=== PATIENT | female | born 1980 | race American Indian/Alaskan Native ===

== ENCOUNTER 2018-12-31 11:58 | Emergency (ER) | payer OTHER ==
--- NOTE | 2018-12-31 12:22 | EDM.PDOC ---
ED HPI GENERAL MEDICAL PROBLEM - General Chief Complaint: Fever Stated Complaint: AMBULANCE Time Seen by Provider: 12/31/18 12:22 Source of Information: Reports: Patient, EMS, Family, Old Records, RN, RN Notes Reviewed History Limitations: Reports: No Limitations - History of Present Illness INITIAL COMMENTS - FREE TEXT/NARRATIVE: Pt sent from [facility] today by ambulance with c/o fever, jaundice, and new murmur. Pt states she hasn't felt well for several days. Pt's sister reports pt has been intermittently confused recently. Records from clinic indicate pt was admitted to [facility] on 12/19/18 for evaluation of a traumatic hematoma to the right anterior lower leg. While there the hematoma was lanced and drained, and the pt was seen by GI with upper/lower endoscopy showing mild portal HYN, gastropathy, mild gastritis, no varices, and the presence of hemorrhoids. Pt also experienced alcohol withdrawals during the admission. She was d/c'd home on 12/23/18. Pt has continued to drink alcohol. She states the she last drank 40oz. to 60oz. of beer yesterday. Pt denies cough, chest pain, abdominal pain, nausea, vomiting, diarrhea, black/ tarry or melanotic stool. Onset: Gradual Duration: Day(s): (3-4) Location: Reports: Generalized Severity: Severe Improves with: Reports: None Worsens with: Reports: None Associated Symptoms: Reports: No Other Symptoms - Related Data Allergies Allergy/AdvReac Type Severity Reaction Status Date / Time No Known Allergies Allergy Verified 12/31/18 12:59 Home Meds: Home Meds . [No Known Home Meds] 12/31/18 [History] Past Medical History Cardiovascular History: Reports: Heart Murmur Gastrointestinal History: Reports: Cirrhosis, Gastritis, Hemorrhoids, Jaundice, Other (See Below) (Alcoholic liver disease) Psychiatric History: Reports: Addiction (Alcohol) Hematologic History: Reports: Anemia Social & Family History - Family History Family Medical History: Noncontributory - Tobacco Use Smoking Status *Q: Current Some Day Smoker Tobacco Use Within Last Twelve Months: Cigarettes - Alcohol Use Alcohol Use History: Yes Days Per Week of Alcohol Use: 7 (40 to 60oz beer/day) Alcohol Use Frequency: Daily - Recreational Drug Use Recreational Drug Use: No - Living Situation & Occupation Living situation: Reports: with Significant Other Occupation: Unemployed ED ROS GENERAL - Review of Systems Review Of Systems: ROS reveals no pertinent complaints other than HPI. ED EXAM, GENERAL - Physical Exam Exam: See Below Exam Limited By: No Limitations General Appearance: Alert, No Apparent Distress, Other (Chronically ill appearing) Eye Exam: Bilateral Eye: EOMI, PERRL, Other (Scleral icterus) Ears: Normal External Exam, Hearing Grossly Normal Nose: Normal Inspection, Normal Mucosa, No Blood Throat/Mouth: Normal Lips, Normal Oropharynx, Normal Voice, No Airway Compromise , Other (Dry oral membranes. Gum erythema/irritation) Head: Atraumatic, Normocephalic Neck: Normal Inspection, Supple, Non-Tender, Full Range of Motion, Other (No nuchal rigidity). No: Lymphadenopathy (L), Lymphadenopathy (R) Respiratory/Chest: No Respiratory Distress, Lungs Clear, Normal Breath Sounds, No Accessory Muscle Use, Chest Non-Tender Cardiovascular: Normal Peripheral Pulses, Regular Rate, Rhythm, No Gallop, No JVD, Systolic Murmur (2/6) GI/Abdominal: Normal Bowel Sounds, Soft, Non-Tender, No Distention, No Abnormal Bruit, Hepatomegaly. No: Guarding, Rigid, Rebound (Female) Exam: Deferred Rectal (Female) Exam: Deferred Back Exam: Normal Inspection, Full Range of Motion. No: CVA Tenderness (L), CVA Tenderness (R) Extremities: Normal Range of Motion, Normal Capillary Refill, Pedal Edema (+1 edema to knees, R>L), Other (resolving hematoma with healing non-infected central wound, no drainage, no erythema). No: Joint Swelling, Diana's Sign, Increased Warmth, Redness Neurological: Alert, Oriented, CN II-XII Intact, Normal Cognition, Normal Gait, No Motor/Sensory Deficits, Other (Fine tremor of B/L upper extremities) Psychiatric: Normal Affect, Normal Mood Skin Exam: Warm, Dry, Intact, No Rash, Other (multiple bruises to various body areas in various stages of healing) EKG INTERPRETATION EKG Date: 12/31/18 Time: 12:17 Rhythm: Other (SR) Rate (Beats/Min): 97 [place]: Normal P-Wave: Present QRS: Normal ST-T: Normal QT: Prolonged (borderline) Comparison: NA - No Prior EKG Course - Vital Signs Last Recorded V/S: Last Vital Signs Temp 39.4 C H 12/31/18 14:25 Pulse 106 H 12/31/18 14:25 Resp 20 12/31/18 14:25 BP 95/69 12/31/18 14:25 Pulse Ox 100 12/31/18 14:25 - Orders/Labs/Meds Orders: Active Orders 24 hr Category Date Time Status EKG Documentation Completion [RC] STAT Care 12/31/18 12:24 Active Peripheral IV Care [RC] . DIRECTED Care 12/31/18 12:28 Active Chest 1V Frontal [CR] Stat Exams 12/31/18 14:47 Ordered CULTURE BLOOD [] Stat Lab 12/31/18 13:11 Received CULTURE BLOOD [] Stat Lab 12/31/18 13:50 Received CULTURE STREP A CONFIRMATION [] Stat Lab 12/31/18 13:06 Results CULTURE WOUND + SMEAR [] Stat Lab 12/31/18 14:15 Received STREP SCRN A RAPID W CULT CONF [] Stat Lab 12/31/18 13:06 Results Sodium Chloride 0.9% [Normal Saline] 1,000 ml Med 12/31/18 14:14 Active IV .BOLUS Vancomycin 1 gm Med 12/31/18 14:13 Active Sodium Chloride 0.9% [Normal Saline] 250 ml IV ONETIME Blood Culture x2 Reflex Set [OM.PC] Stat Oth 12/31/18 12:28 Ordered Medication Orders Sodium Chloride (Normal Saline) 1,000 mls @ 999 mls/hr IV .BOLUS ONE Stop: 12/31/18 15:14 Last Admin: 12/31/18 14:36 Dose: 999 mls/hr Vancomycin HCl 1 gm/ Sodium (Chloride) 250 mls @ 167 mls/hr IV ONETIME ONE Stop: 12/31/18 15:42 Last Admin: 12/31/18 14:39 Dose: 167 mls/hr Labs: Laboratory Tests 12/31/18 12/31/18 12/31/18 Range/Units 12:30 13:11 13:11 WBC 19.4 H (5.0-10.0) 10^3/uL RBC 2.72 L (4.2-5.4) 10^6/uL Hgb 7.3 L (12.0-16.0) g/dL Hct 22.9 L (37.0-47.0) % MCV 84.2 (80-100) fL MCH 26.8 L (27.0-34.0) pg MCHC 31.9 L (33.0-35.0) g/dL Plt Count 235 (150-450) 10^3/uL APTT (22.0-34.0) SEC Sodium 128 L (135-145) mmol/L Potassium 3.3 L (3.6-5.0) mmol/L Chloride 99 L (101-111) mmol/L Carbon Dioxide 18.0 L (21.0-31.0) mmol/L Anion Gap 14.3 BUN 7 (7-18) mg/dL Creatinine 0.4 L (0.6-1.3) mg/dL Est Cr Clr Drug Dosing 157.75 mL/min Estimated GFR (MDRD) > 60 BUN/Creatinine Ratio 17.50 Glucose 96 (74-105) mg/dL Lactic Acid (0.5-2.2) mmol/L Calcium 7.0 L (8.4-10.2) mg/dl Total Bilirubin 3.8 H (0.2-1.0) mg/dL AST 69 H (10-42) IU/L ALT 21 (10-60) IU/L Alkaline Phosphatase 228 H (42-121) IU/L Ammonia (11-35) umol/L Troponin I 0.02 (0.00-0.02) ng/ml Total Protein 7.1 (6.7-8.2) g/dl Albumin 1.6 L (3.2-5.5) g/dl Globulin 5.5 Albumin/Globulin Ratio 0.29 Amylase 28 (28-100) U/L Lipase 27 (22-51) U/L Urine Color Brittney (YELLOW) Urine Appearance Clear (CLEAR) Urine pH 6.0 (5.0-9.0) Ur Specific [place] 1.020 (1.005-1.030) Urine Protein Trace H (NEGATIVE) Urine Glucose (UA) Negative (NEGATIVE) Urine Ketones Trace H (NEGATIVE) Urine Occult Blood Negative (NEGATIVE) Urine Nitrite Negative (NEGATIVE) Urine Bilirubin Small H (NEGATIVE) Urine Urobilinogen 4.0 H (0.2-1.0) mg/dL Ur Leukocyte Esterase Negative (NEGATIVE) Urine RBC 0-5 /HPF Urine WBC 0-5 (0-5/HPF) /HPF Ur Epithelial Cells Moderate H /HPF Urine Bacteria Few (0-FEW/HPF) /HPF Urine Mucus Moderate H /LPF Ethyl Alcohol < 5 mg/dL 12/31/18 12/31/18 12/31/18 Range/Units 13:11 13:11 13:11 WBC (5.0-10.0) 10^3/uL RBC (4.2-5.4) 10^6/uL Hgb (12.0-16.0) g/dL Hct (37.0-47.0) % MCV (80-100) fL MCH (27.0-34.0) pg MCHC (33.0-35.0) g/dL Plt Count (150-450) 10^3/uL APTT 37.8 H (22.0-34.0) SEC Sodium (135-145) mmol/L Potassium (3.6-5.0) mmol/L Chloride (101-111) mmol/L Carbon Dioxide (21.0-31.0) mmol/L Anion Gap BUN (7-18) mg/dL Creatinine (0.6-1.3) mg/dL Est Cr Clr Drug Dosing mL/min Estimated GFR (MDRD) BUN/Creatinine Ratio Glucose (74-105) mg/dL Lactic Acid 3.0 H (0.5-2.2) mmol/L Calcium (8.4-10.2) mg/dl Total Bilirubin (0.2-1.0) mg/dL AST (10-42) IU/L ALT (10-60) IU/L Alkaline Phosphatase (42-121) IU/L Ammonia 58 H (11-35) umol/L Troponin I (0.00-0.02) ng/ml Total Protein (6.7-8.2) g/dl Albumin (3.2-5.5) g/dl Globulin Albumin/Globulin Ratio Amylase (28-100) U/L Lipase (22-51) U/L Urine Color (YELLOW) Urine Appearance (CLEAR) Urine pH (5.0-9.0) Ur Specific [place] (1.005-1.030) Urine Protein (NEGATIVE) Urine Glucose (UA) (NEGATIVE) Urine Ketones (NEGATIVE) Urine Occult Blood (NEGATIVE) Urine Nitrite (NEGATIVE) Urine Bilirubin (NEGATIVE) Urine Urobilinogen (0.2-1.0) mg/dL Ur Leukocyte Esterase (NEGATIVE) Urine RBC /HPF Urine WBC (0-5/HPF) /HPF Ur Epithelial Cells /HPF Urine Bacteria (0-FEW/HPF) /HPF Urine Mucus /LPF Ethyl Alcohol mg/dL Meds: Medications Generic Name Dose Route Start Last Admin Trade Name Freq PRN Reason Stop Dose Admin Sodium Chloride 1,000 mls @ 999 mls/hr 12/31/18 14:14 12/31/18 14:36 Normal Saline IV 12/31/18 15:14 999 mls/hr .BOLUS ONE Administration Vancomycin HCl 1 gm/ Sodium 250 mls @ 167 mls/hr 12/31/18 14:13 12/31/18 14: 39 Chloride IV 12/31/18 15:42 167 mls/hr ONETIME ONE Administration Discontinued Medications Generic Name Dose Route Start Last Admin Trade Name Freq PRN Reason Stop Dose Admin Piperacillin Sod/Tazobactam 100 mls @ 200 mls/hr 12/31/18 14:13 12/31/18 14: 36 Sod 3.375 gm/ Sodium Chloride IV 12/31/18 14:42 200 mls/hr ONETIME ONE Administration - Radiology Interpretation Free Text/Narrative:: XR Rt Lower Extremity: anterior soft tissue swelling, no FB, no fractures per Rad. report. Chest XR: no acute process per Rad. report. Departure - Departure Time of Disposition: 15:01 Disposition: DC/Tfer to [facility] 02 Condition: Critical Clinical Impression: Alcoholic liver disease, Wound infection, Newly recognized heart murmur, Chronic alcohol abuse Sepsis Qualifiers: Sepsis type: sepsis due to unspecified organism Qualified Code(s): A41.9 - Sepsis, unspecified organism - Discharge Information *PRESCRIPTION DRUG MONITORING PROGRAM REVIEWED*: No *COPY OF PRESCRIPTION DRUG MONITORING REPORT IN PATIENT KRISTINA: No Forms: ED Department Discharge, Interfacility Transfer EMTALA - My Orders Last 24 Hours: My Active Orders 12/31/18 12:24 EKG Documentation Completion [RC] STAT 12/31/18 12:28 Peripheral IV Care [RC] . DIRECTED Blood Culture x2 Reflex Set [OM.PC] Stat 12/31/18 13:06 CULTURE STREP A CONFIRMATION [RM] Stat STREP SCRN A RAPID W CULT CONF [RM] Stat 12/31/18 13:11 CULTURE BLOOD [BC] Stat 12/31/18 13:50 CULTURE BLOOD [BC] Stat 12/31/18 14:13 Vancomycin 1 gm Sodium Chloride 0.9% [Normal Saline] 250 ml IV ONETIME 12/31/18 14:14 Sodium Chloride 0.9% [Normal Saline] 1,000 ml IV .BOLUS 12/31/18 14:15 CULTURE WOUND + SMEAR [RM] Stat 12/31/18 14:47 Chest 1V Frontal [CR] Stat - Assessment/Plan Last 24 Hours: My Active Orders 12/31/18 12:24 EKG Documentation Completion [RC] STAT 12/31/18 12:28 Peripheral IV Care [RC] . DIRECTED Blood Culture x2 Reflex Set [OM.PC] Stat 12/31/18 13:06 CULTURE STREP A CONFIRMATION [] Stat STREP SCRN A RAPID W CULT CONF [] Stat 12/31/18 13:11 CULTURE BLOOD [BC] Stat 12/31/18 13:50 CULTURE BLOOD [BC] Stat 12/31/18 14:13 Vancomycin 1 gm Sodium Chloride 0.9% [Normal Saline] 250 ml IV ONETIME 12/31/18 14:14 Sodium Chloride 0.9% [Normal Saline] 1,000 ml IV .BOLUS 12/31/18 14:15 CULTURE WOUND + SMEAR [RM] Stat 12/31/18 14:47 Chest 1V Frontal [CR] Stat
--- NOTE | 2018-12-31 13:03 | CR ---
Clinical history: 38-year-old female with lower extremity swelling. No reported trauma. Interpretation: Prominent pretibial soft tissue swelling without sign of underlying foreign body, inflammatory periostitis, or subcutaneous air. No pathologic skeletal lesion or fracture of the long bones (tibia/fibula). Mild arthritic changes of the knee joint proximally. Ankle joint unremarkable. ,
[2018-12-31 13:47] LABS: ANION GAP 14.3; CHLORIDE,CL 99 mmol/L (101-111); SODIUM,NA 128 mmol/L (135-145)
[2018-12-31] MEDS ORDERED: Piperacillin/Tazobactam 3.375 GM in Sodium Chloride 0.9% 100 ML IV ONE (14:13)
[2018-12-31] MEDS ORDERED: Sodium Chloride 0.9% 1,000 ML IV ONE (14:14)
--- NOTE | 2018-12-31 15:43 | CR ---
Clinical history: 38-year-old female chest pain. Dilatation: Upright AP portable chest film unremarkable. (No comparison films) External phototypesetting equipment monitor leads. Normal cardiac silhouette without cephalization of flow, signs of alveolar edema or dependent pleural fluid accumulation. No lung mass, hilar lymphadenopathy or focal lobar pneumonia. No atelectasis/collapse. Amanda thorax unremarkable. No pneumothorax or free subdiaphragmatic air.. CONCLUSION: No acute cardiopulmonary abnormality.
== END 2018-12-31 15:05 ==
LOC: EDBD → DL.ED 11:58
DX: A41.9 Sepsis, unspecified organism (principal); K70.9 Alcoholic liver disease, unspecified; F10.20 Alcohol dependence, uncomplicated; F17.210 Nicotine dependence, cigarettes, uncomplicated
CPT/HCPCS: 36415; 71045; 73590; 80053; 81001; 82140; 82150; 83605; 83690; 84484; 85027; 85730; 87040; 87070; 87081; 87205; 87430; 87804; 93005; 96365; 96368; 99285; G0480; J2543; J3370; J7030; J7050

== ENCOUNTER 2019-12-08 20:00 | Emergency (ER) | payer MEDICAID ==
--- NOTE | 2019-12-08 20:32 | EDM.PDOC ---
ED HPI GENERAL MEDICAL PROBLEM - General Chief Complaint: Behavioral/Psych Stated Complaint: TOXIC BUILD UP IN BODY, HEARING VOICES PER PT SIS. Time Seen by Provider: 12/08/19 20:15 Source of Information: Reports: Patient, Family (Sister) History Limitations: Reports: No Limitations - History of Present Illness INITIAL COMMENTS - FREE TEXT/NARRATIVE: This 39 yo female patient reports to the ED due to hearing voices over the past 2-3 days. The patient also reports having intermittent left lower quadrant abdominal pain and intermittent chest pain. The patient patient reports the voices she has been hearing have been "from law enforcement saying they were going to kill her and hide her body someplace." The patient reports her abdominal pain is currently present, but has been going on for the past several days. The patient reports she currently does not have any chest pain. The patient reports she was recently hospitalized in [facility]) with similar symptoms. The patient reports he has not had any alcohol in the past 2 days and has not done any drugs for the past 2 weeks. 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 The patient's sister reports she had a missing persons on the patient in the end of November. The patient was located at [facility] on 11/27/19 with similar symptoms. The patient has been in the [place] for about 4 days. The patient reports she did contact [facility] and has a Telemedicine appointment for Thursday from 10-10:30. Onset: Unknown/Unsure Duration: Day(s):, Constant (voices for 2 days), Intermittent (chest pain (not currently present) and left lower abdominal pain (currently present)) Location: Reports: Abdomen Quality: Reports: Other Severity: Moderate Improves with: Reports: None Worsens with: Reports: None Context: Reports: Other Left Groin Pain Score (Numeric/FACES): 5 Left Lower Abdominal Pain Score (Numeric/FACES): 3 - Related Data Allergies Allergy/AdvReac Type Severity Reaction Status Date / Time No Known Allergies Allergy Verified 12/31/18 12:59 Home Meds: Home Meds . [No Known Home Meds] 12/31/18 [History] Past Medical History - Past Health History Medical/Surgical History: Denies Medical/Surgical History HEENT History: Reports: Impaired Vision Cardiovascular History: Reports: Heart Murmur Gastrointestinal History: Reports: Cirrhosis, Gastritis, Hemorrhoids, Jaundice Psychiatric History: Reports: Addiction, Depression, Hallucinations Hematologic History: Reports: Anemia Social & Family History - Family History Family Medical History: Noncontributory - Tobacco Use Smoking Status *Q: Current Every Day Smoker Years of Tobacco use: 20 Packs/Tins Daily: 2 Used Tobacco, but Quit: No Second Hand Smoke Exposure: Yes - Caffeine Use Caffeine Use: Reports: Coffee - Alcohol Use Date of Last Drink: 12/04/19 - Recreational Drug Use Recreational Drug Use: Yes Drug Use in Last 12 Months: Yes Recreational Drug Type: Reports: Marijuana/Hashish, Methamphetamine Recreational Drug Use Frequency: Binges - Living Situation & Occupation Living situation: Reports: with Significant Other Occupation: Unemployed ED ROS GENERAL - Review of Systems Review Of Systems: Comprehensive ROS is negative, except as noted in HPI. - Physical Exam Exam: See Below Exam Limited By: No Limitations General Appearance: Alert, WD/WN, Anxious, Mild Distress Eye Exam: Bilateral Eye: EOMI, Normal Inspection, PERRL Ears: Normal External Exam, Normal Canal, Hearing Grossly Normal, Normal TMs Nose: Normal Inspection, Normal Mucosa, No Blood Throat/Mouth: Normal Inspection, Normal Lips, Normal Teeth, Normal Gums, Normal Oropharynx, Normal Voice, No Airway Compromise Head Exam: Atraumatic, Normocephalic Neck: Normal Inspection, Supple, Non-Tender, Full Range of Motion Respiratory/Chest: No Respiratory Distress, Lungs Clear, Normal Breath Sounds, No Accessory Muscle Use, Chest Non-Tender Cardiovascular: Normal Peripheral Pulses, Regular Rate, Rhythm, No Edema, No Gallop, No JVD, No Murmur, No Rub GI/Abdominal: Normal Bowel Sounds, Soft, No Organomegaly, No Distention, No Abnormal Bruit, No Mass, Pelvis Stable, Tender (mild tenderness left lower quadrant) (Female) Exam: Deferred Rectal (Female) Exam: Deferred Neuro Exam (Abbreviated): Alert, Oriented, CN II-XII Intact, Normal Cognition, Normal Gait, Normal Reflexes, No Motor/Sensory Deficits Back Exam: Normal Inspection, Full Range of Motion, NT Extremities: Normal Inspection, Normal Range of Motion, Non-Tender, No Pedal Edema, Normal Capillary Refill Psychiatric: Other (The patient reports auditory hallucinations (She states she has been "hearing voices of law enforcement stating they were going to kill her and hide her body somewhere.") Skin Exam: Warm, Dry, Intact, Normal Color, No Rash Course - Vital Signs Last Recorded V/S: Last Vital Signs Temp 36.8 C 12/08/19 20:17 Pulse 56 L 12/08/19 20:17 Resp 16 12/08/19 20:17 BP 151/88 H 12/08/19 20:17 Pulse Ox 99 12/08/19 20:17 - Orders/Labs/Meds Orders: Active Orders 24 hr Category Date Time Status Abdomen 2V AP Flat Upright [CR] Urgent Exams 12/08/19 21:08 Ordered Labs: Laboratory Tests 12/08/19 12/08/19 12/08/19 Range/Units 20:24 20:24 20:24 WBC (5.0-10.0) 10^3/uL RBC (4.2-5.4) 10^6/uL Hgb (12.0-16.0) g/dL Hct (37.0-47.0) % MCV (80-100) fL MCH (27.0-34.0) pg MCHC (33.0-35.0) g/dL Plt Count (150-450) 10^3/uL Neut % (Auto) (42.2-75.2) % Lymph % (Auto) (20.5-50.1) % Casey % (Auto) (2-8) % Eos % (Auto) (1.0-3.0) % Baso % (Auto) (0.0-1.0) % Sodium (136-145) mmol/L Potassium (3.5-5.1) mmol/L Chloride (98-107) mmol/L Carbon Dioxide (21-32) mmol/L Anion Gap (7-13) mEq/L BUN (7-18) mg/dL Creatinine (0.55-1.02) mg/dL Est Cr Clr Drug Dosing mL/min Estimated GFR (MDRD) BUN/Creatinine Ratio (No establ ref range) Glucose (74-99) mg/dL Calcium (8.5-10.1) mg/dL Magnesium 1.7 L (1.8-2.4) mg/dL Total Bilirubin (0.2-1.0) mg/dL AST (15-37) U/L ALT (14-59) U/L Alkaline Phosphatase (46-116) U/L Ammonia < 10 L (11-32) umol/L Total Protein (6.4-8.2) g/dL Albumin (3.4-5.0) g/dL Globulin Albumin/Globulin Ratio Amylase 62 (25-115) U/L Lipase 110 (73-393) U/L TSH, Ultra Sensitive 2.55 (0.36-3.74) uIU/mL Urine Color (YELLOW) Urine Appearance (CLEAR) Urine pH (5.0-9.0) Ur Specific [place] (1.005-1.030) Urine Protein (NEGATIVE) Urine Glucose (UA) (NEGATIVE) Urine Ketones (NEGATIVE) Urine Occult Blood (NEGATIVE) Urine Nitrite (NEGATIVE) Urine Bilirubin (NEGATIVE) Urine Urobilinogen (0.2-1.0) mg/dL Ur Leukocyte Esterase (NEGATIVE) Salicylates < 2.8 L (2.8-20(Therapeutic)) mg/dL Urine Opiates Screen (NEGATIVE) Ur Oxycodone Screen (NEGATIVE) Urine Methadone Screen (NEGATIVE) Acetaminophen 0 L (10-30 (Therapeutic)) ug/mL Ur Barbiturates Screen (NEGATIVE) U Tricyclic Antidepress (NEGATIVE) Ur Phencyclidine Scrn (NEGATIVE) Ur Amphetamine Screen (NEGATIVE) U Methamphetamines Scrn (NEGATIVE) Urine MDMA Screen (NEGATIVE) U Benzodiazepines Scrn (NEGATIVE) Urine Cocaine Screen (NEGATIVE) U Marijuana (THC) Screen (NEGATIVE) Ethyl Alcohol < 3 (0) mg/dL 12/08/19 12/08/19 12/08/19 Range/Units 20:24 20:24 20:30 WBC 7.9 (5.0-10.0) 10^3/uL RBC 4.05 L (4.2-5.4) 10^6/uL Hgb 13.4 D (12.0-16.0) g/dL Hct 38.8 (37.0-47.0) % MCV 95.8 D (80-100) fL MCH 33.1 (27.0-34.0) pg MCHC 34.5 (33.0-35.0) g/dL Plt Count 212 (150-450) 10^3/uL Neut % (Auto) 60.0 (42.2-75.2) % Lymph % (Auto) 26.9 (20.5-50.1) % Casey % (Auto) 9.5 H (2-8) % Eos % (Auto) 2.7 (1.0-3.0) % Baso % (Auto) 0.9 (0.0-1.0) % Sodium 142 (136-145) mmol/L Potassium 4.1 (3.5-5.1) mmol/L Chloride 102 (98-107) mmol/L Carbon Dioxide 27 (21-32) mmol/L Anion Gap 17.1 H (7-13) mEq/L BUN 5 L (7-18) mg/dL Creatinine 0.63 (0.55-1.02) mg/dL Est Cr Clr Drug Dosing 99.17 mL/min Estimated GFR (MDRD) > 60 BUN/Creatinine Ratio 7.9 (No establ ref range) Glucose 96 (74-99) mg/dL Calcium 9.2 (8.5-10.1) mg/dL Magnesium (1.8-2.4) mg/dL Total Bilirubin 1.1 H (0.2-1.0) mg/dL AST 56 H (15-37) U/L ALT 49 (14-59) U/L Alkaline Phosphatase 203 H (46-116) U/L Ammonia (11-32) umol/L Total Protein 7.9 (6.4-8.2) g/dL Albumin 3.4 (3.4-5.0) g/dL Globulin 4.5 Albumin/Globulin Ratio 0.8 Amylase (25-115) U/L Lipase (73-393) U/L TSH, Ultra Sensitive (0.36-3.74) uIU/mL Urine Color Yellow (YELLOW) Urine Appearance Clear (CLEAR) Urine pH 6.0 (5.0-9.0) Ur Specific [place] <= 1.005 (1.005-1.030) Urine Protein Negative (NEGATIVE) Urine Glucose (UA) Negative (NEGATIVE) Urine Ketones Negative (NEGATIVE) Urine Occult Blood Negative (NEGATIVE) Urine Nitrite Negative (NEGATIVE) Urine Bilirubin Negative (NEGATIVE) Urine Urobilinogen 0.2 (0.2-1.0) mg/dL Ur Leukocyte Esterase Negative (NEGATIVE) Salicylates (2.8-20(Therapeutic)) mg/dL Urine Opiates Screen (NEGATIVE) Ur Oxycodone Screen (NEGATIVE) Urine Methadone Screen (NEGATIVE) Acetaminophen (10-30 (Therapeutic)) ug/mL Ur Barbiturates Screen (NEGATIVE) U Tricyclic Antidepress (NEGATIVE) Ur Phencyclidine Scrn (NEGATIVE) Ur Amphetamine Screen (NEGATIVE) U Methamphetamines Scrn (NEGATIVE) Urine MDMA Screen (NEGATIVE) U Benzodiazepines Scrn (NEGATIVE) Urine Cocaine Screen (NEGATIVE) U Marijuana (THC) Screen (NEGATIVE) Ethyl Alcohol (0) mg/dL 12/08/19 Range/Units 20:30 WBC (5.0-10.0) 10^3/uL RBC (4.2-5.4) 10^6/uL Hgb (12.0-16.0) g/dL Hct (37.0-47.0) % MCV (80-100) fL MCH (27.0-34.0) pg MCHC (33.0-35.0) g/dL Plt Count (150-450) 10^3/uL Neut % (Auto) (42.2-75.2) % Lymph % (Auto) (20.5-50.1) % Casey % (Auto) (2-8) % Eos % (Auto) (1.0-3.0) % Baso % (Auto) (0.0-1.0) % Sodium (136-145) mmol/L Potassium (3.5-5.1) mmol/L Chloride (98-107) mmol/L Carbon Dioxide (21-32) mmol/L Anion Gap (7-13) mEq/L BUN (7-18) mg/dL Creatinine (0.55-1.02) mg/dL Est Cr Clr Drug Dosing mL/min Estimated GFR (MDRD) BUN/Creatinine Ratio (No establ ref range) Glucose (74-99) mg/dL Calcium (8.5-10.1) mg/dL Magnesium (1.8-2.4) mg/dL Total Bilirubin (0.2-1.0) mg/dL AST (15-37) U/L ALT (14-59) U/L Alkaline Phosphatase (46-116) U/L Ammonia (11-32) umol/L Total Protein (6.4-8.2) g/dL Albumin (3.4-5.0) g/dL Globulin Albumin/Globulin Ratio Amylase (25-115) U/L Lipase (73-393) U/L TSH, Ultra Sensitive (0.36-3.74) uIU/mL Urine Color (YELLOW) Urine Appearance (CLEAR) Urine pH (5.0-9.0) Ur Specific [place] (1.005-1.030) Urine Protein (NEGATIVE) Urine Glucose (UA) (NEGATIVE) Urine Ketones (NEGATIVE) Urine Occult Blood (NEGATIVE) Urine Nitrite (NEGATIVE) Urine Bilirubin (NEGATIVE) Urine Urobilinogen (0.2-1.0) mg/dL Ur Leukocyte Esterase (NEGATIVE) Salicylates (2.8-20(Therapeutic)) mg/dL Urine Opiates Screen Negative (NEGATIVE) Ur Oxycodone Screen Negative (NEGATIVE) Urine Methadone Screen Negative (NEGATIVE) Acetaminophen (10-30 (Therapeutic)) ug/mL Ur Barbiturates Screen Negative (NEGATIVE) U Tricyclic Antidepress Negative (NEGATIVE) Ur Phencyclidine Scrn Negative (NEGATIVE) Ur Amphetamine Screen Negative (NEGATIVE) U Methamphetamines Scrn Negative (NEGATIVE) Urine MDMA Screen Negative (NEGATIVE) U Benzodiazepines Scrn Negative (NEGATIVE) Urine Cocaine Screen Negative (NEGATIVE) U Marijuana (THC) Screen Negative (NEGATIVE) Ethyl Alcohol (0) mg/dL - Re-Assessments/Exams Free Text/Narrative Re-Assessment/Exam: 12/08/19 21:23 Discussed the patient's history with Veronica ([facility]) who advised to have the patient call [facility] if she has any additional symptoms or further concerns. The patient does have an appointment on Thursday with the [facility] [place]. Departure - Departure Time of Disposition: 21:27 Disposition: Home, Self-Care 01 Condition: Fair Clinical Impression: Anxiety, Auditory hallucinations Constipation Qualifiers: Constipation type: unspecified constipation type Qualified Code(s): K59.00 - Constipation, unspecified - Discharge Information *PRESCRIPTION DRUG MONITORING PROGRAM REVIEWED*: Not Applicable *COPY OF PRESCRIPTION DRUG MONITORING REPORT IN PATIENT KRISTINA: Not Applicable Instructions: Constipation, Adult, [id number], High-Fiber Diet, Living With Anxiety Forms: ED Department Discharge Care Plan Goals: The patient and her sister were advised of the examination, lab and x-ray results during the visit. The patient was encouraged to call the Crisis Line ) if she has any additional symptoms. The [facility]. If the patient has any additional symptoms or concerns, the patient should either return to the emergency department or visit her primary care facility. Sepsis Event Note - Evaluation Sepsis Screening Result: No Definite Risk - Focused Exam Vital Signs: Vital Signs Temp Pulse Resp BP Pulse Ox 12/08/19 20:17 36.8 C 56 L 16 151/88 H 99 Date Exam was Performed: 12/08/19 Time Exam was Performed: 21:23 - My Orders Last 24 Hours: My Active Orders 12/08/19 21:08 Abdomen 2V AP Flat Upright [CR] Urgent - Assessment/Plan Last 24 Hours: My Active Orders 12/08/19 21:08 Abdomen 2V AP Flat Upright [CR] Urgent
[2019-12-08 20:53] LABS: ANION GAP 17.1 mEq/L (7-13); CHLORIDE,CL 102 mmol/L (98-107); SODIUM,NA 142 mmol/L (136-145)
[2019-12-08 21:01] LABS: ACETAMINOPHEN 0 ug/mL (10-30 (Therapeutic))
== END 2019-12-08 21:35 | disposition home or self-care (01) ==
LOC: DL.ED 20:00
DX: K59.00 Constipation, unspecified (principal); F41.9 Anxiety disorder, unspecified; R44.0 Auditory hallucinations; F17.210 Nicotine dependence, cigarettes, uncomplicated
CPT/HCPCS: 36415; 74019; 80053; 80305-QW; 80307; 81003; 82140; 82150; 83690; 83735; 84443; 85025; 99285-25